=== PATIENT | male | born 1970 | race Caucasian/White ===

== ENCOUNTER 2018-02-22 08:45 | Emergency (ER) | payer OTHER ==
[~2018-02-22] VITALS: Ht 182.9 cm; Wt 88.5 kg
[~2018-02-22 08:45] MED LIST: ADVAIR HFA 1112 UNIT INH; ANTIVERT25 MG PO; COLACE 100 MG100 MG PO; DARVOCET-N 1001 EACH PO; DUONEB 2.5-0.5 M3 ML INH; ENOXAPARIN40 MG/0.1 SUBQ; HYDROCODON-ACE1 EAC7 PO; KEFLEX500 MG PO; LEVAQUIN 500 M500 MG PO; MEDROLDOSEPACK PO; MIRALAX17 GM PO; NORCO 5-325 TA1 EACH PO; OXYCODONE HCL 55 MG PO; PREDNISONE 10 M10 MG; PROAIR HFA8.5 GM INH; PROVENTIL IH; ZPAK PO
[2018-02-22 08:49] VITALS: BP 155/95
[2018-02-22] MEDS ORDERED: NOHOMEMEDICATIONS (08:53)
[2018-02-22] MEDS ORDERED: NAPROSYN500 MG PO (09:01)
[2018-02-22] MEDS ORDERED: FLEXERIL PO (09:01)
== END 2018-02-22 09:08 | disposition home or self-care (01) ==
LOC: M.ERS 08:45
DX: S16.1XXA Strain of muscle, fascia and tendon at neck level, initial encounter (principal); J45.909 Unspecified asthma, uncomplicated; F17.210 Nicotine dependence, cigarettes, uncomplicated; Z88.0 Allergy status to penicillin; Z88.6 Allergy status to analgesic agent; X58.XXXA Exposure to other specified factors, initial encounter; Y93.89 Activity, other specified; Y92.89 Other specified places as the place of occurrence of the external cause; Y99.8 Other external cause status

== ENCOUNTER 2020-12-25 15:30 | Inpatient (IN) | payer OTHER ==
[~2020-12-25] VITALS: Ht 185.4 cm; Wt 105.9 kg
[~2020-12-25 15:30] MED LIST changes: +FLEXERIL PO; +NAPROSYN500 MG PO; +NOHOMEMEDICATIONS
[2020-12-25 15:35] VITALS: BP 156/118
[2020-12-25 16:02] LABS: URINE BILIRUBIN NEGATIVE (Negative); URINE BLOOD NEGATIVE (Negative); URINE CLARITY CLEAR; URINE COLOR YELLOW; URINE GLUCOSE-RANDOM 2+ (Negative); URINE KETONES TRACE (Negative); URINE LEUKOCYTES-REFLEX NEGATIVE (Negative); URINE NITRITE-REFLEX NEGATIVE (Negative); URINE PROTEIN NEGATIVE (Negative); URINE UROBILINOGEN 0.2 E.U./dl (0.2-1.0)
[2020-12-25 16:28] LABS: BE -5.7 mmol/L (-2 to +3); PCO2 VENOUS 34.1 mmHg (41.0-51.0)
[2020-12-25 16:30] LABS: ABSOLUTE BASOPHILS 0.1 thou/uL (0.0-0.2); ABSOLUTE EOSINOPHILS 0.2 thou/uL (0.0-0.7); ABSOLUTE LYMPHOCYTES 2.4 thou/uL (0.8-5.3); ABSOLUTE MONOCYTES 0.7 thou/uL (0.0-1.2); ABSOLUTE NEUTROPHILS 5.5 thou/uL (1.6-8.1); BASOPHILS 1.2 %; EOSINOPHILS 2.2 %; HEMATOCRIT 47.8 % (42.0-52.0); HEMOGLOBIN 15.5 gm/dL (14.0-18.0); LYMPHOCYTES 26.6 %; MCH 27.5 pg (26.0-34.0); MCHC 32.4 g/dL (28.0-37.0); MONOCYTES 8.4 %; MPV 10.7 fl. (7.2-11.1); NUCLEATED RBCS 0 /100WBC; PLATELET COUNT* 225 thou/uL (150-400); POLYS 61.6 %; RBC 5.62 mil/uL (4.50-6.00); RDW-CV 13.5 % (10.5-14.5); WBC 8.9 thou/uL (4.0-11.0)
[2020-12-25 16:40] LABS: CALCIUM 8.3 mg/dL (8.5-10.1); CREATININE 1.5 mg/dL (0.6-1.3); POTASSIUM 4.7 mmol/L (3.5-5.1)
[2020-12-25 16:42] LABS: ALBUMIN 3.9 g/dL (3.4-5.0); TOTAL BILIRUBIN 0.7 mg/dL (<0.1-1.0); TOTAL PROTEIN 8.1 g/dL (6.4-8.2)
[2020-12-25 21:20] VITALS: BP 134/85
[2020-12-26 02:00] VITALS: BP 146/70
[2020-12-26 06:00] VITALS: BP 130/94
[2020-12-26 09:17] VITALS: BP 136/99
--- NOTE | 2020-12-26 12:03 | NUR ---
RN AGREES WITH ADMISSION ASSESSMENT. PT ALERT AND ORIENTED. LUNG SOUNDS CLEAR. RADIAL AND DORSALIS PEDIS PULSES 2+. BOWEL SOUNDS ACTIVE. TELE MONITOR IN PLACE AND IV INTACT.
[2020-12-26 14:04] LABS: CALCIUM 8.2 mg/dL (8.5-10.1); POTASSIUM 4.1 mmol/L (3.5-5.1)
[2020-12-26 16:00] VITALS: BP 142/71
[2020-12-26 20:30] VITALS: BP 135/91
[2020-12-27 00:14] VITALS: BP 125/80
[2020-12-27 04:40] VITALS: BP 159/106
[2020-12-27 04:49] LABS: ABSOLUTE EOSINOPHILS 0.4 thou/uL (0.0-0.7); ABSOLUTE LYMPHOCYTES 3.4 thou/uL (0.8-5.3); ABSOLUTE MONOCYTES 0.7 thou/uL (0.0-1.2); ABSOLUTE NEUTROPHILS 4.4 thou/uL (1.6-8.1); BASOPHILS 0.5 %; EOSINOPHILS 4.5 %; HEMATOCRIT 44.5 % (42.0-52.0); LYMPHOCYTES 38.1 %; MCH 27.8 pg (26.0-34.0); MCHC 33.8 g/dL (28.0-37.0); MCV 82.2 fL (80.0-100.0); MONOCYTES 8.2 %; MPV 10.2 fl. (7.2-11.1); NUCLEATED RBCS 1 /100WBC; PLATELET COUNT* 210 thou/uL (150-400); POLYS 48.7 %; RBC 5.41 mil/uL (4.50-6.00); RDW-CV 13.5 % (10.5-14.5)
[2020-12-27 04:59] LABS: CALCIUM 8.5 mg/dL (8.5-10.1); CREATININE 0.8 mg/dL (0.6-1.3); POTASSIUM 3.6 mmol/L (3.5-5.1)
--- NOTE | 2020-12-27 05:37 | NUR ---
PT SLEPT MOST OF SHIFT. ASSESSMENT DOCUMENTED. MEDS GIVEN PER E-MAR. IV PATENT, FLUIDS INFUSING. PT EDUCATED HOW TO GIVE OWN INSULIN SHOTS. PT ABLE TO MAKE NEEDS KNOWN, WILL CONTINUE WITH PLAN OF CARE.
[2020-12-27 06:06] LABS: GLYCOHEMOGLOBIN (HGB A1C) 13.4 % (4.8-5.6)
[2020-12-27] MEDS ORDERED: FREESTYLE LANC1 EACH MISCELL (07:56)
[2020-12-27] MEDS ORDERED: HUMALOG100 UNIT/1 SUBQ (07:56)
[2020-12-27] MEDS ORDERED: ONETOUCH ULTRA1 EAC1 SUBQ (07:56)
[2020-12-27] MEDS ORDERED: LANTUS SUBQ (07:56)
[2020-12-27] MEDS ORDERED: METFORMIN HCL850 MG PO (07:56)
[2020-12-27] MEDS ORDERED: TEST STRIPS1 EACH SUBQ (07:56)
[2020-12-27 09:00] VITALS: BP 158/93
[2020-12-27 11:48] VITALS: BP 159/106
[2020-12-27 20:07] VITALS: BP 159/106
== END 2020-12-27 12:40 | disposition home or self-care (01) | DRG 637 ==
LOC: M.ERS 15:30 → M.TBA-ER 17:23 → M.2W 17:23
PROVIDERS: Family Medicine; Internal Medicine; Physician Assistant; ADMIT Internal Medicine; ATTEND Internal Medicine
DX: E11.65 Type 2 diabetes mellitus with hyperglycemia (principal); E11.00 Type 2 diabetes mellitus with hyperosmolarity without nonketotic hyperglycemic-hyperosmolar coma (NKHHC); E72.51 Non-ketotic hyperglycinemia; N17.9 Acute kidney failure, unspecified; Z20.822 Contact with and (suspected) exposure to COVID-19; J45.909 Unspecified asthma, uncomplicated; E86.0 Dehydration; F17.210 Nicotine dependence, cigarettes, uncomplicated; Z79.899 Other long term (current) drug therapy; Z88.8 Allergy status to other drugs, medicaments and biological substances; Z88.0 Allergy status to penicillin; Z71.6 Tobacco abuse counseling